=== PATIENT | female | born 1960 | race Caucasian/White ===

== ENCOUNTER 2022-08-12 09:17 | Outpatient (REF) | payer OTHER, SELFPAY ==
--- NOTE | 2022-08-12 09:30 | EMG_ITS ---
5Please see scanned EMG / Nerve Conduction Report. MTDD
== END 2022-08-12 09:18 | disposition home or self-care (01) ==
LOC: HO.NEURO 09:17
PROVIDERS: PCP Internal Medicine; Visit Provider Internal Medicine
DX: M54.16 Radiculopathy, lumbar region (principal)
CPT/HCPCS: 95885; 95909

== ENCOUNTER → 2022-10-29 15:27 | Outpatient (BNVA) | payer OTHER, SELFPAY | PROVIDERS: PCP Internal Medicine; Visit Provider Physician Assistant ==

== ENCOUNTER 2022-11-23 13:52 | Outpatient (AMB) | payer OTHER, SELFPAY ==
--- NOTE | 2022-11-23 13:58 | MHC.OFFVISWM ---
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 Her goal is to feel better and be healthier. She reports first being concerned about her weight last 2 years. Her sister had LSG with our program this year..She has tried multiple methods of weight loss including diets without permanent results. She lives with . She works 5 days per week 8 hour shifts and is concerned she would not be able to retuen to work right after surgery due to lifting heavy objects and not being able to drink while working. She wakes at: 5am bed at 10 pm Breakfast: 5 am coffee 1 cup with cream. skips breakfast daily 10 am - muffin or donuts with chocolate milk 1pm - Snapple and fig newtons 5pm - take out 3-4 d/ week. If cooks - meat loaf with potatoes and vegetable. Coke After dinner: chips or cupcakes Other snacks: see above Liquids: may have 1-2 cups of coffee in afternoon or evening. Soda daily, no fruit juice Alcohol intake: 3-4 d/week will have 1 -2 rum and coke, tobacco: stopped age 32, marijuana: none now Exercise: none. Has stationary bike Last mammogram: due now Last pap smear: s/p hysterecotmy control method: s/p hysterectomy LEISA: 1 ESS:3 GERD9: QOL:109 PFSH Surgical History Hx of cholecystectomy Hx of hysterectomy Hx of knee surgery Social History (Updated 10/29/22 @ 15:53 by Chasidy Balbuena CMA) Alcohol intake: current Alcohol intake frequency: 0-2 drinks per day Patient Tobacco Use Status: Former Tobacco user Physical Exam Vital Signs: Last Vital Signs Temp 97.2 F 11/23/22 14:06 Pulse 90 11/23/22 14:06 BP 150/98 H 11/23/22 14:06 Pulse Ox 92 11/23/22 14:06 Oxygen Delivery Method Room Air 11/23/22 14:06 BMI result Body Mass Index 53.1 Const General: cooperative, no acute distress and well developed Nutritional Appearance: obese Orientation/consciousness: patient oriented x3 HEENT Head: Yes normal to inspection Neck Neck: Yes normal visual inspection Thyroid: Thyroid normal Resp Effort & Inspection: normal respiratory effort Auscultation: clear to auscultation bilaterally Cardio Rate: regular rate Rhythm: regular rhythm Heart sounds: S1 normal heart sound present, S2 normal heart sound present and no murmurs GI Inspection: No distended and Yes obesity Palpation (GI): Soft to palpation, nontender and no guarding Skin General skin exam: no rashes or lesions noted and other (warm and dry) Wounds: no wounds Hair: normal Neuro General: patient oriented x3 Extrem General: Yes no pedal edema and Yes no calf tenderness Psych Attitude: cooperative Thought process: Normal thought process present Thought content: Normal thought content present Insight: Good insight present (Psych) Judgement: Good judgement present (Psych) Assessment & Plan Assessment & Plan (1) Morbid obesity: Code(s): E66.01 - Morbid (severe) obesity due to excess calories Plan: This is a 62 yo woman with morbid obesity who will start SWL program to prepare for bariatric surgery. Blood work, h pylori , CXR, ECG, Abd ULS and UGI have been ordered. She is being scheduled for RD and BH initial consultations. She will start SWL classes and watch at 3 classes before her next appt with Ana. Due to history of gastri culcer - n 1. Adequate sleep of 7-8 hours per night discussed 2. Healthy meal plan - stop skipping meals and stop all sweetened drinks and restaurant food All meals/MR's need to take 20 minutes to complete 5am 1 c coffee with 2-3 oz protein shake 8am - 30 gram shake 11 am - 30 gram shake 1:30 pm- bar or yogurt 7 pm- dinner of 6 oz lean protein, 8 oz vegetable, 1 serving fruit Exercise - Cardio 4 d week = treadmill at speed 3.0, incline 3-5 - to burn 350 calories 3 d/ wk - circuit room 20/20/40 lbs The importance of avoiding and breast feeding for at least 18 months after bariatric surgery was discussed in the information session and was reinforced today. Pt will purchase body composition analyzer (recommended list given to patient) and weight herself weekly. Next appt with me in 3 weeks. Text me with any questions and weekly weights. Patient is morbidly obese and is not considered stable at this time.?I spent a total of 60 minutes reviewing/updating records, examining the patient and counseling the patient on weight management as detailed above. (2) Gastric ulcer: Code(s): K25.9 - Gastric ulcer, unspecified as acute or chronic, without hemorrhage or perforation (3) HTN (hypertension), benign: Code(s): I10 - Essential (primary) hypertension Orders: Orders Vitamin B12 and Folate Today E66.01 - Morbid (severe) obesity due to excess calories, I10 - Essential (primary) hypertension, K25.9 - Gastric ulcer, unspecified as acute or chronic, without hemorrhage or perforation, Z01.818 - Encounter for other preprocedural examination Comprehensive Met. Panel Today E66.01 - Morbid (severe) obesity due to excess calories, I10 - Essential (primary) hypertension, K25.9 - Gastric ulcer, unspecified as acute or chronic, without hemorrhage or perforation, Z01.818 - Encounter for other preprocedural examination C Reactive Protein Today E66.01 - Morbid (severe) obesity due to excess calories, I10 - Essential (primary) hypertension, K25.9 - Gastric ulcer, unspecified as acute or chronic, without hemorrhage or perforation, Z01.818 - Encounter for other preprocedural examination Ferritin Today E66.01 - Morbid (severe) obesity due to excess calories, I10 - Essential (primary) hypertension, K25.9 - Gastric ulcer, unspecified as acute or chronic, without hemorrhage or perforation, Z01.818 - Encounter for other preprocedural examination Hemoglobin A1c Today E66.01 - Morbid (severe) obesity due to excess calories, I10 - Essential (primary) hypertension, K25.9 - Gastric ulcer, unspecified as acute or chronic, without hemorrhage or perforation, Z01.818 - Encounter for other preprocedural examination Insulin Today E66.01 - Morbid (severe) obesity due to excess calories, I10 - Essential (primary) hypertension, K25.9 - Gastric ulcer, unspecified as acute or chronic, without hemorrhage or perforation, Z01.818 - Encounter for other preprocedural examination IRON PROFILE Today E66.01 - Morbid (severe) obesity due to excess calories, I10 - Essential (primary) hypertension, K25.9 - Gastric ulcer, unspecified as acute or chronic, without hemorrhage or perforation, Z01.818 - Encounter for other preprocedural examination Lipid Panel Today E66.01 - Morbid (severe) obesity due to excess calories, I10 - Essential (primary) hypertension, K25.9 - Gastric ulcer, unspecified as acute or chronic, without hemorrhage or perforation, Z01.818 - Encounter for other preprocedural examination PTHI Today E66.01 - Morbid (severe) obesity due to excess calories, I10 - Essential (primary) hypertension, K25.9 - Gastric ulcer, unspecified as acute or chronic, without hemorrhage or perforation, Z01.818 - Encounter for other preprocedural examination TSH reflex Free T4 Today E66.01 - Morbid (severe) obesity due to excess calories, I10 - Essential (primary) hypertension, K25.9 - Gastric ulcer, unspecified as acute or chronic, without hemorrhage or perforation, Z01.818 - Encounter for other preprocedural examination Vitamin A Today E66.01 - Morbid (severe) obesity due to excess calories, I10 - Essential (primary) hypertension, K25.9 - Gastric ulcer, unspecified as acute or chronic, without hemorrhage or perforation, Z01.818 - Encounter for other preprocedural examination Vitamin B1 Today E66.01 - Morbid (severe) obesity due to excess calories, I10 - Essential (primary) hypertension, K25.9 - Gastric ulcer, unspecified as acute or chronic, without hemorrhage or perforation, Z01.818 - Encounter for other preprocedural examination Vitamin D 25-OH Total Today E66.01 - Morbid (severe) obesity due to excess calories, I10 - Essential (primary) hypertension, K25.9 - Gastric ulcer, unspecified as acute or chronic, without hemorrhage or perforation, Z01.818 - Encounter for other preprocedural examination Zinc Today E66.01 - Morbid (severe) obesity due to excess calories, I10 - Essential (primary) hypertension, K25.9 - Gastric ulcer, unspecified as acute or chronic, without hemorrhage or perforation, Z01.818 - Encounter for other preprocedural examination ECG 12 lead EKG Today E66.01 - Morbid (severe) obesity due to excess calories, I10 - Essential (primary) hypertension, K25.9 - Gastric ulcer, unspecified as acute or chronic, without hemorrhage or perforation, Z01.818 - Encounter for other preprocedural examination FL upper GI w air Today E66.01 - Morbid (severe) obesity due to excess calories, I10 - Essential (primary) hypertension, K25.9 - Gastric ulcer, unspecified as acute or chronic, without hemorrhage or perforation, Z01.818 - Encounter for other preprocedural examination Complete Blood Count Auto Diff Today E66.01 - Morbid (severe) obesity due to excess calories, I10 - Essential (primary) hypertension, K25.9 - Gastric ulcer, unspecified as acute or chronic, without hemorrhage or perforation, Z01.818 - Encounter for other preprocedural examination H Pylori Breath Test Today E66.01 - Morbid (severe) obesity due to excess calories, I10 - Essential (primary) hypertension, K25.9 - Gastric ulcer, unspecified as acute or chronic, without hemorrhage or perforation, Z01.818 - Encounter for other preprocedural examination US abdomen comp w elastography Today E66.01 - Morbid (severe) obesity due to excess calories, I10 - Essential (primary) hypertension, K25.9 - Gastric ulcer, unspecified as acute or chronic, without hemorrhage or perforation, Z01.818 - Encounter for other preprocedural examination XR chest 2V Today E66.01 - Morbid (severe) obesity due to excess calories, I10 - Essential (primary) hypertension, K25.9 - Gastric ulcer, unspecified as acute or chronic, without hemorrhage or perforation, Z01.818 - Encounter for other preprocedural examination Referrals Behavioral Health Referral E66.01 - Morbid (severe) obesity due to excess calories, I10 - Essential (primary) hypertension, K25.9 - Gastric ulcer, unspecified as acute or chronic, without hemorrhage or perforation, Z01.818 - Encounter for other preprocedural examination Nutrition/Dietitian Referral E66.01 - Morbid (severe) obesity due to excess calories, I10 - Essential (primary) hypertension, K25.9 - Gastric ulcer, unspecified as acute or chronic, without hemorrhage or perforation, Z01.818 - Encounter for other preprocedural examination Coding Level of Care Code New Pt Level 5 (44611) Diagnoses Morbid obesity E66.01 Gastric ulcer K25.9 HTN (hypertension), benign I10
[2022-11-23 14:06] VITALS: BP 150/98; PULSE 90; TEMP 36.2; O2SAT 92; BMI 53.1
== END 2022-11-23 14:56 | disposition home or self-care (01) ==
PROVIDERS: PCP Internal Medicine; Visit Provider Physician Assistant
DX: E66.01 Morbid (severe) obesity due to excess calories (principal); Z68.43 Body mass index [BMI] 50.0-59.9, adult; K25.9 Gastric ulcer, unspecified as acute or chronic, without hemorrhage or perforation; I10 Essential (primary) hypertension
CPT/HCPCS: 99205

== ENCOUNTER → 2022-11-23 13:52 | Outpatient (BNVA) | payer OTHER, SELFPAY | PROVIDERS: PCP Internal Medicine; Visit Provider Physician Assistant ==

== ENCOUNTER → 2022-12-08 12:48 | Outpatient (BNVA) | payer OTHER, SELFPAY | PROVIDERS: PCP Internal Medicine; Visit Provider Dietitian, Registered | DX: E66.9 Obesity, unspecified (principal); Z68.43 Body mass index [BMI] 50.0-59.9, adult; Z71.3 Dietary counseling and surveillance | CPT/HCPCS: 97802 ==